=== PATIENT | female | born 1940 | race African-American/Black ===

== ENCOUNTER → 2016-07-31 | Outpatient (CLI) | payer OTHER ==
[2016-07-14 10:52] VITALS: BP 132/57
[~2016-07-31] MED LIST: ALLO100T PO; AMLO10TA2 PO; AMPI500C2 PO; ASPI81TA9 PO; ATOR20TA58 PO; CA C1TAB38 PO; CHOL20004 PO; FERR55TA PO; FURO40TA4 PO; INSU100C4 SQ; INSU100V8 SQ; LEVO125T5 PO; LOSA1TAB17 PO; METO-269 PO; OMEP20TA63 PO; POTA10TA5 PO
--- NOTE | 2016-07-31 12:07 | KCIC ---
PROCEDURE Left breast sonogram. HISTORY 76-year-old female presents for evaluation of a nodule within the left breast demonstrated on a mammogram dated 05/02/2016. TECHNIQUE Sonographic imaging of the left breast targeted to the 4 o'clock position was performed. COMPARISON 05/02/2016 FINDINGS There is a solid-appearing hypoechoic lesion with internal blood flow and possible punctate microcalcification within the 4 o'clock position of the left breast 4 cm from the nipple. This measures 1.3 cm in maximum dimension and corresponds with the mammographic finding of concern. There is an adjacent similar smaller hypoechoic lesion containing microcalcification measuring 7 mm at the 4 o'clock position 3 cm from the nipple. IMPRESSION 1. 1.3 cm and 7 mm lobulated hypoechoic lesions at the 4 o'clock position, corresponding with the prior mammographic finding of concern. The degree of lesion lobulation and internal echogenicity are not typical for benign nodules such as fibroadenomas. The possibility of neoplasm is not excluded. Sonographic guided biopsy of both lesions is recommended. 2. BI-RADS Category 4: Suspicious finding. Sonographic biospy of the left breast is recommended. These findings and recommendations were discussed with the patient and communicated to the referring physician office. Electronically signed by: Dorcas Rico (Jul 31, 2016 12:05:51)
== END | disposition home or self-care (01) ==
LOC: KCIC US 11:13
PROVIDERS: ATTEND Internal Medicine
DX: R92.8 Other abnormal and inconclusive findings on diagnostic imaging of breast (principal); N63 Unspecified lump in breast
CPT/HCPCS: 76641

== ENCOUNTER → 2016-08-18 | Outpatient (CLI) | payer OTHER ==
[~2016-08-18] VITALS: Ht 170.2 cm; Wt 103.0 kg
[~2016-08-18] MED LIST changes: +ASCO500T28 PO; +DOCU100T11 PO; +LIDOCAINE 2%/EPI 1:100,000 20 ML VIAL. IJ ONE; +aranesp SQ
[2016-08-18 10:35] VITALS: BP 158/68
--- NOTE | 2016-08-24 10:44 | RAD ---
Ultrasound-guided left breast biopsy #1, 08/18/2016: History: Breast nodules A previous ultrasound exam from 07/31/2016 demonstrated suspicious breast nodules. Today's preliminary scans demonstrated a lobulated hypoechoic nodule at the 4:00 location, as well as a cluster of small hypoechoic nodules at the 3:00 location. Although present on older mammograms, the nodules at both sites appeared to have enlarged slightly. We first targeted the 4:00 lesion. Under local anesthesia, aseptic conditions and sonographic guidance the [employer] ATEC biopsy instrument was passed into this region via a lateral approach. Multiple 12-gauge vacuum-assisted core samples were obtained and sent to the lab for pathologic evaluation. A T-shaped biopsy marker was then deposited at the biopsy site. The biopsy instrument was then removed and hemostasis obtained. Ultrasound-guided left breast biopsy #2, 08/18/2016: We then targeted the cluster of hypoechoic nodules at the 3:00 location. Under local anesthesia, aseptic conditions and sonographic guidance the [employer] ATEC biopsy instrument was passed into this region and lateral approach. Multiple 12-gauge vacuum-assisted core samples were obtained and sent to the lab for pathologic evaluation. A cylindrical biopsy marker was then deposited at this biopsy site. The biopsy instrument was then removed and hemostasis obtained. Two-view postprocedural mammograms were then obtained to document position of the biopsy markers. The biopsy sites correspond in location to the nodules seen on the prior mammograms. These nodules were no longer visible mammographically due to postbiopsy change. The patient tolerated the procedure well and left the department in good condition. 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 Note: The findings were given to personnel in Dr. Mistry office at 10:40 AM on 08/24/2016.
== END | disposition home or self-care (01) ==
LOC: US 10:06
PROVIDERS: ATTEND Internal Medicine
DX: R92.8 Other abnormal and inconclusive findings on diagnostic imaging of breast (principal)
CPT/HCPCS: 76942; C1713; G0206; 88305; 88361; 77065

== ENCOUNTER → 2020-02-27 | Outpatient (CLI) | payer OTHER ==
[2020-02-12 14:40] VITALS: BP 156/58
[~2020-02-27] MED LIST changes: -AMLO10TA2 PO; +AMLO10TA8 PO; -ASCO500T28 PO; +ASCO500T55 PO; +ASPI-886 PO; -ASPI81TA9 PO; -CHOL20004 PO; +CHOL200074 PO; +EXEM25TA2 PO; +FERR325T14 PO; -LIDOCAINE 2%/EPI 1:100,000 20 ML VIAL. IJ ONE; -LOSA1TAB17 PO; +LOSA1TAB22 PO; +POTA10TA12 PO; -POTA10TA5 PO; +TAMO20TA PO; +VALS1TAB22 PO
--- NOTE | 2020-02-27 16:18 | RAD ---
Bilateral lower extremity venous doppler ultrasound History: Bilateral leg pain and swelling Comparison: None Findings: Multiple grayscale, color, and duplex spectral analysis sonographic images were acquired of the bilateral lower extremity veins to evaluate for the presence of DVT. There is normal phasicity. Normal compression, color-flow, and augmentation is demonstrated from the bilateral common femoral to the popliteal veins. There is normal color flow of the proximal greater saphenous and profunda femoris veins. There is normal color flow of segments of the calf veins. There is left popliteal fossa fluid collection about 4 cm x 6.7 cm in size. Impression: 1. There is no evidence of deep venous thrombosis from the bilateral common femoral to the popliteal veins. 2. There is left popliteal fossa fluid collection. Electronically signed by: Nico Raman MD (02/27/2020 4:15 PM) [id number]
== END | disposition home or self-care (01) ==
LOC: US 15:18
PROVIDERS: ATTEND Nurse Practitioner Family
DX: R22.43 Localized swelling, mass and lump, lower limb, bilateral (principal); I25.10 Atherosclerotic heart disease of native coronary artery without angina pectoris
CPT/HCPCS: 93970

== ENCOUNTER 2020-06-28 16:10 | Emergency (ER) | payer OTHER ==
[2020-04-21 14:46] VITALS: BP 128/78
[~2020-06-28 16:10] MED LIST changes: +ACET325T9 PO; +AMLO-187 PO; -AMLO10TA8 PO; +AMOX250C PO; +FURO20TA3 PO; +GABA-585 PO; +HYDR-2869 PO; +INSU100V35 SQ; +LACT1CAP19 PO; +LIDO700A21 TD; +METO-239 PO; +TIZA4TAB2 PO; +TRAM50TA PO
--- NOTE | 2020-06-28 16:36 | PHYS DOC ---
Past Medical History Past Medical History: Anemia, Diabetes-Type II, High Cholesterol, Hypertension Past Surgical History: Other Additional Past Surgical Histo: LUMPECTOMY L BREAST Smoking Status: Never Smoker Alcohol Use: None General Adult EDM: Chief Complaint: CPR/FULL ARREST HPI: HPI: Patient is a 79 year old female history of hypertension anemia, she is supposed to go to her doctor today for an iron shot however she did not feel well so her laid her in her bed so she can sleep. At 3:30 PM today he tried to wake her up but she was found unresponsive. EMS was called, they found her to her taking her last breath, CPR was initiated per ACLS protocol. They bagged her, GAVE HER doses of epi, was still in asystole. Review of Systems: Review of Systems: NOT ABLE TO OBTAIN DUE TO CONDITION. Heart Score: Risk Factors: Risk Factors: DM, Current or recent (<one month) smoker, HTN, HLP, family history of CAD, obesity. Risk Scores: Score 0 - 3: 2.5% MACE over next 6 weeks - Discharge Home Score 4 - 6: 20.3% MACE over next 6 weeks - Admit for Clinical Observation Score 7 - 10: 72.7% MACE over next 6 weeks - Early Invasive Strategies Allergies: Allergies: Allergies Coded Allergies Type Severity Reaction Last Updated Verified Sulfa (Sulfonamide Antibiotics) Allergy Intermediate 04/21/20 Yes codeine Allergy Intermediate Itching 04/21/20 Yes Physical Exam: PE: Constitutional: Well developed, well nourished, UNRESPONSIVE. HENT: Normocephalic, atraumatic, bilateral external ears normal, BLOOD IN oropharynx , nose normal. [] Eyes: PERRLA, EOMI, conjunctiva normal, no discharge. [] Neck: NO JVD, TRACHEA MIDLINE. Cardiovascular:NO PULSE, ASYSTOLE ON THE MONITOR. Lungs & Thorax: NO SPONTANEOUS RESPIRATION. Abdomen: Bowel sounds SOFT, NO DISTENTION,NO MASS. Skin: Warm, dry, no erythema, no rash. [] Back: ATRAUMATIC. ] Extremities: ATRAUMATIC Neurologic: UNRESPONSIVE TO VERBAL OR PAIN, COMATOSE Psychologic:NOT ABLE TO EVALUATE DUE TO CONDITION. EKG: EKG: [] Radiology/Procedures: Radiology/Procedures: Indication: Respiratory failure Consent: Unable to give consent due to emergent nature. Medications Used: see nursing note Procedure: The patient was placed in the appropriate position. Intubation was performed [CORD VISUALIZATION METHOD] [ET TUBE SIZE] endotracheal tube. [ET SECURE]. Initial confirmation of placement included bilateral breath sounds, tube fogging, adequate chest rise, adequate pulse oximetry reading. A chest x- ray to verify correct placement of the tube showed appropriate tube position. The patient tolerated the procedure well. Complications: none.[] Course & Med Decision Making: Course & Med Decision Making Pertinent Labs and Imaging studies reviewed. (See chart for details) Patient is a 79-year-old female who was found unresponsive in her bed by her family at 3:30 PM today. EMS was called, EMS noted that she took her last breath when they arrived, patient was in asystole. Patient was resuscitated by EMS by ACLS protocol for 26 minutes. Upon arrival to ER, patient was in asystole, bagging with Ambu bag by EMS. After 3 rounds of resuscitation, patient was in asystole still. She was pronounced by this physician at 1622. Patient Family Was Consulted, Patient's Family Physician Dr. Mary Mistry was NOTIFIED, Dr. Trish Rob , resolute professional , agreed to sign the certificate. Dragon Disclaimer: Dragon Disclaimer: This electronic medical record was generated, in whole or in part, using a voice recognition dictation system. Departure Departure Impression: Primary Impression: Cardiac arrest Disposition: 20 Referrals: MARY MISTRY MD (PCP) MAURIZIO TEIXEIRA DO Jun 28, 2020 16:36
== END 2020-06-28 19:43 ==
LOC: ER 16:10
DX: I46.9 Cardiac arrest, cause unspecified (principal); E11.9 Type 2 diabetes mellitus without complications; E78.00 Pure hypercholesterolemia, unspecified; I10 Essential (primary) hypertension; Z88.2 Allergy status to sulfonamides; Z88.5 Allergy status to narcotic agent
CPT/HCPCS: 31500; 99285-25